=== PATIENT | male | born 1965 | race Caucasian/White ===

== ENCOUNTER 2025-08-01 20:07 | Emergency (ER) | payer SELFPAY ==
[~2025-08-01] VITALS: Ht 175.3 cm; Wt 73.0 kg
[2025-08-01 20:11] VITALS: TEMP 97.7; O2SAT 98
[2025-08-01] MEDS: ACETAMINOPHEN 500MG TABLET PO ONE (22:06)
[2025-08-02 01:18] VITALS: BP 102/63; PULSE 86; RESP 18; O2SAT 100
== END 2025-08-02 01:19 | disposition home or self-care (01) ==
LOC: ER 20:07
DX: F10.229 Alcohol dependence with intoxication, unspecified (principal); F19.90 Other psychoactive substance use, unspecified, uncomplicated; Y90.9 Presence of alcohol in blood, level not specified
CPT/HCPCS: 99283